=== PATIENT | male | born 1935 | race Caucasian/White ===

== ENCOUNTER 2016-07-03 13:06 | Emergency (ER) | payer OTHER ==
[~2016-07-03] VITALS: Ht 177.8 cm; Wt 68.9 kg
[~2016-07-03 13:06] MED LIST: ARICEPT5 MG PO; ASPIRIN325 MG PO; AUGMENTIN875 MG PO; CELEXA20 MG PO; DESYREL100 MG PO; ECOTRIN325 MG PO; FLOMAX0.4 MG PO; HYDROCODON-ACE1 EAC7 PO; HYDROCODONE-AP1 EAC8 PO; LISINOPRIL20 MG PO; NORVASC2.5 MG PO; NORVASC5 MG PO; PERCOCET 5/31 TABLET PO; PRINIVIL20 MG PO; PROTONIX40 MG PO; SEROQUEL12.5 MG PO; SEROQUEL50 MG PO; TENORMIN50 MG PO; TRAZODONE HCL50 MG PO; VICODIN,LORT1 TABLET PO; ZESTRIL,PRINIVI20 MG PO
[2016-07-03 13:54] LABS: ADD MIUA? NO; BILIRUBIN NEGATIVE; BLOOD NEGATIVE; COLOR STRAW ((YELLOW)); GLUCOSE (STRIP) NEGATIVE; KETONES NEGATIVE; LEUKOCYTES NEGATIVE; NITRITE NEGATIVE; PROTEIN (STRIP) NEGATIVE; SPECIFIC GRAVITY 1.008 (1.000-1.030); UCUL ADDED? NO; UROBILINOGEN 0.2 MG/DL (0.2-1.0)
[2016-07-03 14:06] LABS: AMPHETAMINE NEGATIVE (500 ng/mL); BARBITURATES NEGATIVE (200 ng/mL); BENZODIAZEPINES NEGATIVE (150 ng/mL); COCAINE NEGATIVE (150 ng/mL); INTERNAL CONTROLS VALID? YES; METHADONE NEGATIVE (200 ng/mL); METHAMPHETAMINE NEGATIVE (500 ng/mL); OPIATES (MORPHINE) NEGATIVE (100 ng/mL); OXYCODONE NEGATIVE (100 ng/mL); PHENCYCLIDINE NEGATIVE (25 ng/mL); PROPOXYPHENE NEGATIVE (300 ng/mL); THC CANNABINOIDS NEGATIVE (50 ng/mL); TRICYCLIC ANTIDEPRESSANTS NEGATIVE (300 ng/mL)
[2016-07-03 14:46] LABS: HEMATOCRIT 40.2 % (38.0-50.0); MCH 31.7 PG (29.0-34.0); MCHC 32.8 G/DL (30.0-36.0); MCV 96.4 FL (86-99); MEAN PLAT.VOLUME 10.7 uM^3 (9.0-12.4); PLATELET COUNT 181 K/uL (156-360); RBC DIS.WIDTH-SD 46.5 % (39-53); RED BLOOD COUNT 4.17 M/uL (4.00-5.50); WHITE BLOOD COUNT 4.7 K/uL (4.1-10.2)
[2016-07-03 14:57] LABS: CHLORIDE 106 mEq/L (99-109); POTASSIUM 4.4 mEq/L (3.7-5.4); SODIUM 143 mEq/L (136-147)
[2016-07-03 14:58] LABS: GLUCOSE 92 mg/dL (70-99)
[2016-07-03 15:00] LABS: ANION GAP 9 MEQ/L (2-14)
[2016-07-03 15:02] LABS: GFR ESTIMATE (CALCULATED) > 59 mL/min/; SERUM ETHYL ALCOHOL < 10 mg/dL
[2016-07-03 15:03] LABS: UREA NITROGEN (BUN) 18 mg/dL (9-23)
[2016-07-03 18:43] VITALS: BP 132/70
== END 2016-07-03 18:44 | disposition home or self-care (01) ==
LOC: EME 13:06
PROVIDERS: Emergency Medicine
DX: F02.81 Dementia in other diseases classified elsewhere, unspecified severity, with behavioral disturbance (principal); I10 Essential (primary) hypertension; Z87.891 Personal history of nicotine dependence
CPT/HCPCS: 80048; 81003; 85027; 90839; 99281; 99285; G0480